=== PATIENT | female | born 1940 | race Caucasian/White ===

== ENCOUNTER 2016-05-03 11:34 | Emergency (ER) | payer MEDICARE ==
[2016-05-03] MEDS ORDERED: Acetaminophen TAB* 325 MG PO ONE (12:11)
--- NOTE | 2016-05-03 12:19 | ED ---
Upper Extremity Pain - HPI Summary HPI Summary: Patient presents with right shoulder pain that began when she pushed up to get out of her chair at 0200 this am. She uses a cane in her left hand and usually pushes up with her right from her chair. She did not hear or feel a pop in the arm, but immediately had pain. She has mild numbness in her right hand at baseline due to diabetes. She does not notice swelling, warmth or redness in the arm. She denies CP, SOB, or dizziness. 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 Mechanism Of Injury: Unknown Onset/Duration: Started Hours Ago Timing: Constant Severity Initially: Severe Severity Currently: Severe Pain Location: Shoulder Character: Sharp, Aching Aggravating Factor(s): Movement Alleviating Factor(s): Rest Associated Signs & Symptoms: Positive: Negative Related History: Dominant Hand Right - Allergies/Home Medications Allergies/Adverse Reactions: Allergies Allergy/AdvReac Type Severity Reaction Status Date / Time Lisinopril Allergy Intermediate Swelling Verified 05/03/16 12:15 Penicillin G Allergy Mild Swelling Verified 05/03/16 12:15 Bee Venom Allergy Swelling Verified 05/03/16 12:15 Home Medications: Home Medications Acetaminophen [Extra Strength Acetaminop] 2 tab PO Q4H PRN 05/03/16 [History Confirmed 05/03/16] Fluticasone HFA 110 mcg(NF) [Flovent HFA 110 mcg(NF)] 2 puff INH BID 05/03/16 [ History Confirmed 05/03/16] Hydrocodone-Acetaminophen [Hydrocodone/Acetaminophen 5-325 mg] 1 tab PO Q4H PRN 05/03/16 [History Confirmed 05/03/16] PMH/Surg Hx/FS Hx/Imm Hx Endocrine/Hematology History: Reports: Hx Diabetes Denies: Hx Anticoagulant Therapy Cardiovascular History: Reports: Hx Hypertension Respiratory History: Reports: Hx Asthma, Hx Chronic Obstructive Pulmonary Disease (COPD) GI History: Reports: Hx Gall Bladder Disease - Current History: Denies: Hx Renal Disease Musculoskeletal History: Reports: Hx Gout, Hx Orthopedic Injury - Left Hip Replacement, Other Musculoskeletal History - obesity Sensory History: Reports: Hx Contacts or Glasses - reading Opthamlomology History: Reports: Hx Contacts or Glasses - reading Psychiatric History: Denies: Hx Anxiety, Hx Depression - Cancer History Hx Chemotherapy: No Hx Radiation Therapy: No Hx Palliative Cancer Treatment: No - Surgical History Surgery Procedure, Year, and Place: Appendectomy, chilecystectomy, tubal ligation, Left Hip Replacement, r knee arthroscopy Hx Anesthesia Reactions: No Infectious Disease History: No Infectious Disease History: Denies: Traveled Outside the [place] in Last 30 Days - Family History Known Family History: Positive: Cardiac Disease, Hypertension - Social History Occupation: Unemployed Lives: With Family Alcohol Use: Rare Substance Use Type: Reports: None Smoking Status (MU): Former Smoker Review of Systems Negative: Chest Pain Negative: Shortness Of Breath Positive: Arthralgia, Myalgia, Decreased ROM. Negative: Edema Negative: Bruising All Other Systems Reviewed And Are Negative: Yes Physical Exam Triage Information Reviewed: Yes Vital Signs On Initial Exam: Initial Vitals Temp Pulse Resp BP Pulse Ox 98.4 F 85 20 109/46 98 05/03/16 11:53 05/03/16 11:53 05/03/16 11:53 05/03/16 11:53 05/03/16 11:53 Vital Signs Reviewed: Yes Appearance: Positive: Well-Appearing, Pain Distress, Obese Skin: Positive: Warm, Skin Color Reflects Adequate Perfusion, Dry, Soft Head/Face: Positive: Normal Head/Face Inspection Eyes: Positive: EOMI, [id number], Conjunctiva Clear ENT: Positive: Hearing grossly normal Respiratory/Lung Sounds: Positive: Clear to Auscultation, Breath Sounds Present Cardiovascular: Positive: RRR Musculoskeletal: Positive: Limited @ - AROM is painful in any direction; PROM FF to 10 with pain; ER/IR limited to neutral due to pain; FROM with pain in right elbow, Pain @ - TTP deltoid, AC joint and bicipital grove. Non-tender scapular spine, clavicle, and acromion. Neurological: Positive: Sensory/Motor Intact, Alert, Oriented to Person Place, Time, NV Bundle Intact Distally - altered at baseline and consistent as per patient Psychiatric: Positive: Affect/Mood Appropriate AVPU Assessment: Alert Diagnostics - Vital Signs Vital Signs Temp Pulse Resp BP Pulse Ox 05/03/16 11:53 98.4 F 85 20 109/46 98 - Laboratory Lab Statement: Any lab studies that have been ordered have been reviewed, and results considered in the medical decision making process. - Radiology No standard instances Xray Interpretation: No Acute Changes Radiology Interpretation Completed By: Radiologist Course/Dx - Diagnoses Differential Diagnosis/HQI/PQRI: Positive: Arthritis, Bursitis, Contusion, Fracture (Closed), Hematoma, Strain, Sprain Provider Diagnoses: Right shoulder strain Discharge - Discharge Plan Condition: Stable Disposition: HOME Prescriptions: HYDROcodone/ACETAMIN 5-325 MG* [[place] 5-325 TAB*] 1 tab PO Q6H PRN #12 tab MDD 4 PRN Reason: Pain Patient Education Materials: Shoulder Pain (ED) Referrals: Yessy North MD [Primary Care Provider] - Epi Mackay MD [Medical Doctor] - Additional Instructions: Please use the sling to support your shoulder as needed. You can add an extra [place] to your pain routine as needed and use ice or heat as well. Please call the orthopedic office today to make an appointment for evaluation. Return to the emergency department if your symptoms worsen.
--- NOTE | 2016-05-03 13:02 | RAD ---
Indication: RIGHT lateral arm pain. Comparison: None. Technique: Internal and external rotation AP and scapular Y views RIGHT shoulder Report: Normal acromioclavicular and glenohumeral joint alignment. Moderate acromioclavicular and moderately severe glenohumeral joint osteophytosis. Subchondral sclerosis at the glenohumeral joint. Negative for fracture. Negative for stigmata of calcific tendinopathy. Unremarkable soft tissue contours. 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
[2016-05-03] MEDS ORDERED: HYDROcodone/ACETAMIN 5-325 MG* 1 TAB PO ONE (13:22)
[2016-05-03 13:50] VITALS: BP 115/37
== END 2016-05-03 13:47 | disposition home or self-care (01) ==
LOC: ED 11:34
DX: M25.511 Pain in right shoulder (principal); S46.911A Strain of unspecified muscle, fascia and tendon at shoulder and upper arm level, right arm, initial encounter; X50.9XXA Other and unspecified overexertion or strenuous movements or postures, initial encounter; Y93.9 Activity, unspecified; Y92.9 Unspecified place or not applicable
CPT/HCPCS: 99282; A9270-GY

== ENCOUNTER 2021-08-19 12:21 | Inpatient (IN) ==
[2021-08-19] MEDS ORDERED: cefTRIAXone 1 gm/50 mL D5W 1 GM/50 ML BAG IV ONE (13:16)
[2021-08-19 13:50] LABS: ABS Lymphocytes 0.9 10^3/ul (1.0-4.8); ABS Monocytes 0.4 10^3/ul (0-0.8); ABS Neutrophils 9.2 10^3/ul (1.5-7.7); Eosinophil % 0.1 %; Hematocrit 34 % (35-47); Hemoglobin 11.1 g/dL (12.0-16.0); Lymphocyte % 8.6 %; Mean Corpuscular HGB Conc 32 g/dL (31-36); Mean Corpuscular Hemoglobin 28 pg (27-31); Mean Corpuscular Volume 89 fL (80-97); Mean Platelet Volume 8.9 fL (7.4-10.4); Platelet Count 166 10^3/uL (150-450); Red Blood Count 3.89 10^6 /uL (3.70-4.87); Red Cell Distribution Width 15 % (10-15); White Blood Count 10.5 10^3/uL (3.5-10.8)
[2021-08-19 14:21] LABS: Albumin/Globulin Ratio 1.3 (1-3); Calcium 9.7 mg/dL (8.6-10.3); Potassium 3.6 mmol/L (3.5-5.0); Total Bilirubin 0.5 mg/dL (0.2-1.0); eGFR CKD-EPI 64.6 (>60)
[2021-08-19] MEDS ORDERED: NS 0.9% 500 ml BAG 500 ML IV ONE (15:08)
[2021-08-19 15:46] LABS: High Sensitivity Troponin 1 Hr 35 pg/mL (<15)
[2021-08-19] MEDS ORDERED: Furosemide 20 mg/2 ml IV VIAL IV SLOW PU ONE (17:18)
[2021-08-19] MEDS ORDERED: Albuterol HFA INHALER 8 gm MDI INH PRN (17:19)
[2021-08-19] MEDS ORDERED: Dextrose 50% Syringe 50 ml 25 GM/50 ML SYRINGE IV PUSH PRN (17:20)
[2021-08-19] MEDS: Enoxaparin 40 MG/0.4 ML SYR SUBCUT SCH (17:57)
[2021-08-19 18:09] LABS: C Reactive Protein 46.22 mg/L (<8.01)
[2021-08-20 06:10] LABS: ABS Eosinophils 0.1 10^3/ul (0-0.6); ABS Lymphocytes 1.7 10^3/ul (1.0-4.8); ABS Monocytes 0.5 10^3/ul (0-0.8); Eosinophil % 1.5 %; Hematocrit 31 % (35-47); Hemoglobin 10.1 g/dL (12.0-16.0); Lymphocyte % 20.3 %; Mean Corpuscular HGB Conc 33 g/dL (31-36); Mean Corpuscular Hemoglobin 29 pg (27-31); Mean Corpuscular Volume 88 fL (80-97); Mean Platelet Volume 9.1 fL (7.4-10.4); Platelet Count 149 10^3/uL (150-450); Red Cell Distribution Width 15 % (10-15); White Blood Count 8.3 10^3/uL (3.5-10.8)
[2021-08-20 06:27] LABS: Calcium 8.8 mg/dL (8.6-10.3); Potassium 3.1 mmol/L (3.5-5.0); eGFR CKD-EPI 62.1 (>60)
[2021-08-20] MEDS ORDERED: Potassium Chlor 10 meq TAB PO ONE (07:04)
[2021-08-20] MEDS ORDERED: Furosemide 20 mg/2 ml IV VIAL IV SLOW PU ONE (08:20)
[2021-08-20] MEDS: HYDROcodone/ACETAMIN 5/325 mg TAB PO PRN ×2 (11:02→23:00)
[2021-08-20] MEDS: Enoxaparin 40 MG/0.4 ML SYR SUBCUT SCH (17:50)
[2021-08-20] MEDS: Mometasone 220 MCG MDI INH SCH (22:05)
[2021-08-21 07:55] LABS: Magnesium 1.3 mg/dL (1.9-2.7); Potassium 3.8 mmol/L (3.5-5.0); eGFR CKD-EPI 59.8 (>60)
[2021-08-21] MEDS ORDERED: Potassium Chlor 20 meq TAB.ER PO ONE (09:12)
[2021-08-21 09:54] LABS: Calcium 8.2 mg/dL (8.6-10.3)
[2021-08-21 10:13] LABS: ABS Eosinophils 0.2 10^3/ul (0-0.6); ABS Lymphocytes 1.4 10^3/ul (1.0-4.8); ABS Monocytes 0.3 10^3/ul (0-0.8); ABS Neutrophils 4.9 10^3/ul (1.5-7.7); Eosinophil % 2.4 %; Hematocrit 29 % (35-47); Hemoglobin 9.5 g/dL (12.0-16.0); Lymphocyte % 20.3 %; Mean Corpuscular HGB Conc 32 g/dL (31-36); Mean Corpuscular Hemoglobin 29 pg (27-31); Mean Corpuscular Volume 90 fL (80-97); Mean Platelet Volume 9.3 fL (7.4-10.4); Platelet Count 136 10^3/uL (150-450); Red Blood Count 3.28 10^6 /uL (3.70-4.87); Red Cell Distribution Width 15 % (10-15); White Blood Count 6.8 10^3/uL (3.5-10.8)
[2021-08-21] MEDS: Magnesium Sulfate 2 gm BAG 2 GM/50 ML BAG IVPB SCH ×2 (10:58→15:31)
[2021-08-21 12:40] LABS: Ferritin 240.2 ng/mL (11-307)
[2021-08-21 13:20] LABS: Urine Appearance Clear; Urine Bilirubin Negative (Negative); Urine Blood Negative (Negative); Urine Color Yellow; Urine Glucose Negative (Negative); Urine Ketones Negative (Negative); Urine Nitrite Negative (Negative); Urine Protein Negative (Negative); Urine Specific Gravity 1.014 (1.002-1.030); Urine Urobilinogen Negative (Negative)
[2021-08-21 13:24] LABS: Urine Bacteria 1+ (Absent); Urine Red Blood Cell Trace(0-2/hpf) (Absent); Urine Squamous Epithelial Cell Present (Absent); Urine White Blood Cell Trace(0-5/hpf) (Absent)
[2021-08-21] MEDS: Enoxaparin 40 MG/0.4 ML SYR SUBCUT SCH (17:51)
[2021-08-21] MEDS: Mometasone 220 MCG MDI INH SCH (19:15)
[2021-08-21] MEDS: HYDROcodone/ACETAMIN 5/325 mg TAB PO PRN (22:17)
[2021-08-22 05:25] LABS: ABS Eosinophils 0.2 10^3/ul (0-0.6); ABS Lymphocytes 1.3 10^3/ul (1.0-4.8); ABS Monocytes 0.3 10^3/ul (0-0.8); Hematocrit 30 % (35-47); Hemoglobin 9.6 g/dL (12.0-16.0); Lymphocyte % 22.8 %; Mean Corpuscular HGB Conc 32 g/dL (31-36); Mean Corpuscular Hemoglobin 28 pg (27-31); Mean Corpuscular Volume 89 fL (80-97); Mean Platelet Volume 8.9 fL (7.4-10.4); Platelet Count 134 10^3/uL (150-450); Red Blood Count 3.39 10^6 /uL (3.70-4.87); Red Cell Distribution Width 15 % (10-15); White Blood Count 5.9 10^3/uL (3.5-10.8)
[2021-08-22 05:42] LABS: Calcium 8.3 mg/dL (8.6-10.3); Magnesium 2.2 mg/dL (1.9-2.7); Potassium 3.9 mmol/L (3.5-5.0); eGFR CKD-EPI 59.8 (>60)
[2021-08-22] MEDS ORDERED: Perflutren Lipid Microsphere 3 ML VIAL ONE (09:11)
[2021-08-22] MEDS: Enoxaparin 40 MG/0.4 ML SYR SUBCUT SCH (19:01)
[2021-08-22] MEDS: Mometasone 220 MCG MDI INH SCH (20:46)
[2021-08-22] MEDS ORDERED: Senna TAB 8.6 mg TAB PO PRN (22:06)
[2021-08-22] MEDS ORDERED: Magnesium Hydroxide LIQ 30 ML UDC PO PRN (22:06)
[2021-08-22] MEDS: HYDROcodone/ACETAMIN 5/325 mg TAB PO PRN (23:22)
[2021-08-23] MEDS ORDERED: COVID-19 VACCINE, MRNA(MODERNA)/PF 100 MCG/0.5 ML IM ONE (10:41)
[2021-08-23] MEDS: Enoxaparin 40 MG/0.4 ML SYR SUBCUT SCH (18:28)
[2021-08-23] MEDS: Mometasone 220 MCG MDI INH SCH (20:39)
[2021-08-24] MEDS ORDERED: COVID-19 VACCINE, MRNA(PFIZER)/PF 30 MCG/0.3 ML IM ONE (13:00)
[2021-08-24] MEDS ORDERED: COVID-19 VACCINE, TRIS(PFIZER)/PF 30 MCG/0.3 ML IM ONE (13:00)
[2021-08-24] MEDS: SPIRIVA Respimat (tiotropium) 2.5 mcg/inh Inhaler INH SCH (16:18)
[2021-08-24] MEDS: Enoxaparin 40 MG/0.4 ML SYR SUBCUT SCH (19:46)
[2021-08-24] MEDS: Mometasone 220 MCG MDI INH SCH (20:53)
[2021-08-25] MEDS: Ondansetron ODT 4 mg TAB 4 MG TAB SL PRN ×2 (03:28→09:29)
[2021-08-25] MEDS: SPIRIVA Respimat (tiotropium) 2.5 mcg/inh Inhaler INH SCH (08:52)
[2021-08-25] MEDS: Polyethylene Glycol 3350 17 GM PACKET PO SCH (09:30)
[2021-08-25] MEDS: Enoxaparin 40 MG/0.4 ML SYR SUBCUT SCH (18:07)
[2021-08-25] MEDS: Mometasone 220 MCG MDI INH SCH (20:15)
[2021-08-25] MEDS: Senna TAB 8.6 mg TAB PO SCH (22:17)
[2021-08-26 06:33] LABS: Calcium 8.5 mg/dL (8.6-10.3); Magnesium 1.7 mg/dL (1.9-2.7); eGFR CKD-EPI 62.9 (>60)
[2021-08-26 06:37] LABS: Potassium 5.3 mmol/L (3.5-5.0)
[2021-08-26] MEDS: SPIRIVA Respimat (tiotropium) 2.5 mcg/inh Inhaler INH SCH (08:20)
[2021-08-26 10:19] LABS: ABS Eosinophils 0.1 10^3/ul (0-0.6); ABS Lymphocytes 1.6 10^3/ul (1.0-4.8); ABS Monocytes 0.3 10^3/ul (0-0.8); ABS Neutrophils 1.6 10^3/ul (1.5-7.7); Eosinophil % 3.1 %; Hematocrit 30 % (35-47); Hemoglobin 9.9 g/dL (12.0-16.0); Mean Corpuscular HGB Conc 33 g/dL (31-36); Mean Corpuscular Hemoglobin 29 pg (27-31); Mean Corpuscular Volume 89 fL (80-97); Platelet Count 161 10^3/uL (150-450); Red Blood Count 3.38 10^6 /uL (3.70-4.87); Red Cell Distribution Width 15 % (10-15); White Blood Count 3.6 10^3/uL (3.5-10.8)
[2021-08-26 10:19] LABS: Venous Bicarbonate HCO3 34.4 mmol/L (24-28)
[2021-08-26] MEDS: Polyethylene Glycol 3350 17 GM PACKET PO SCH (10:28)
[2021-08-26 10:54] LABS: Calcium 8.2 mg/dL (8.6-10.3); Potassium 4.2 mmol/L (3.5-5.0); eGFR CKD-EPI 75.6 (>60)
[2021-08-26 11:04] LABS: Rapid COVID-19 Molecular Detected (Undetected)
[2021-08-26] MEDS ORDERED: Remdesivir 100 mg Vial 200 MG in NS 0.9% 250 ml 210 ML IV ONE (13:38)
[2021-08-26] MEDS: Dexamethasone IV 4 MG/ML VIAL 1 ml VIAL IV SLOW PU SCH (14:08)
[2021-08-26 14:40] LABS: Magnesium 1.6 mg/dL (1.9-2.7)
[2021-08-26] MEDS ORDERED: Magnesium Sulf 4 GM/100 ML IV 4,000 MG/100 ML BAG IVPB ONE (16:42)
[2021-08-26] MEDS: Enoxaparin 40 MG/0.4 ML SYR SUBCUT SCH (17:29)
[2021-08-26] MEDS: Mometasone 220 MCG MDI INH SCH (19:31)
[2021-08-26] MEDS: Senna TAB 8.6 mg TAB PO SCH (21:52)
[2021-08-27] MEDS: Al Hydrox/Mg Hydrox/Simet LIQ 30 ML UDC PO PRN ×2 (05:26→21:28)
[2021-08-27 05:39] LABS: INR 1.03 (0.86-1.15)
[2021-08-27 06:20] LABS: Albumin 3.2 g/dL (3.2-5.2); Albumin/Globulin Ratio 1.4 (1-3); Calcium 8.3 mg/dL (8.6-10.3); Globulin 2.3 g/dL (2-4); Potassium 4.1 mmol/L (3.5-5.0); Total Bilirubin 0.3 mg/dL (0.2-1.0); Total Protein 5.5 g/dL (6.4-8.9); eGFR CKD-EPI 87.4 (>60)
[2021-08-27] MEDS: SPIRIVA Respimat (tiotropium) 2.5 mcg/inh Inhaler INH SCH (08:43)
[2021-08-27] MEDS: Polyethylene Glycol 3350 17 GM PACKET PO SCH (08:54)
[2021-08-27] MEDS: Dexamethasone IV 4 MG/ML VIAL 1 ml VIAL IV SLOW PU SCH (08:55)
[2021-08-27] MEDS ORDERED: Simethicone SUSP ORALSYR 66.66 MG/ML PO ONE (12:42)
[2021-08-27] MEDS: Pantoprazole VIAL 40 MG VIAL IV SCH (12:55)
[2021-08-27] MEDS: Simethicone SUSP ORALSYR 66.66 MG/ML PO PRN ×2 (16:54→16:55)
[2021-08-27] MEDS: Enoxaparin 40 MG/0.4 ML SYR SUBCUT SCH (17:07)
[2021-08-27] MEDS: Mometasone 220 MCG MDI INH SCH (19:56)
[2021-08-27] MEDS: Senna TAB 8.6 mg TAB PO SCH (21:14)
[2021-08-27] MEDS: Remdesivir 100 mg Vial 100 MG in NS 0.9% 250 ml 230 ML IV SCH (21:27)
[2021-08-28 05:31] LABS: INR 1.08 (0.86-1.15)
[2021-08-28 06:03] LABS: Albumin 3.2 g/dL (3.2-5.2); Albumin/Globulin Ratio 1.1 (1-3); Calcium 8.7 mg/dL (8.6-10.3); Globulin 2.8 g/dL (2-4); Potassium 4.2 mmol/L (3.5-5.0); Total Bilirubin 0.3 mg/dL (0.2-1.0); eGFR CKD-EPI 81.7 (>60)
[2021-08-28] MEDS: Mometasone 220 MCG MDI INH SCH (07:18)
[2021-08-28] MEDS: SPIRIVA Respimat (tiotropium) 2.5 mcg/inh Inhaler INH SCH (07:18)
[2021-08-28] MEDS: Pantoprazole VIAL 40 MG VIAL IV SCH (08:48)
[2021-08-28] MEDS: Dexamethasone IV 4 MG/ML VIAL 1 ml VIAL IV SLOW PU SCH (08:52)
[2021-08-28] MEDS: Polyethylene Glycol 3350 17 GM PACKET PO SCH (09:10)
[2021-08-28] MEDS: Nystatin TOP POWDER 15 GM BTL TOPICAL SCH ×3 (12:16→21:56)
[2021-08-28 15:14] LABS: Urine Appearance Cloudy; Urine Bilirubin Negative (Negative); Urine Blood 1+ (Negative); Urine Color Yellow; Urine Glucose Negative (Negative); Urine Ketones Trace (Negative); Urine Nitrite Negative (Negative); Urine Protein Negative (Negative); Urine Specific Gravity 1.008 (1.002-1.030); Urine Urobilinogen Negative (Negative)
[2021-08-28 15:21] LABS: Urine Bacteria 1+ (Absent); Urine Red Blood Cell Trace(0-2/hpf) (Absent); Urine Squamous Epithelial Cell Present (Absent); Urine White Blood Cell Trace(0-5/hpf) (Absent)
[2021-08-28] MEDS: Enoxaparin 40 MG/0.4 ML SYR SUBCUT SCH (17:04)
[2021-08-28] MEDS: Remdesivir 100 mg Vial 100 MG in NS 0.9% 250 ml 230 ML IV SCH (21:55)
[2021-08-28] MEDS: Senna TAB 8.6 mg TAB PO SCH (21:56)
[2021-08-29 07:00] LABS: INR 1.12 (0.86-1.15)
[2021-08-29 07:12] LABS: Albumin 3.2 g/dL (3.2-5.2); Albumin/Globulin Ratio 1.1 (1-3); Calcium 8.7 mg/dL (8.6-10.3); Globulin 2.8 g/dL (2-4); Potassium 3.7 mmol/L (3.5-5.0); Total Bilirubin 0.4 mg/dL (0.2-1.0); eGFR CKD-EPI 80.4 (>60)
[2021-08-29] MEDS: SPIRIVA Respimat (tiotropium) 2.5 mcg/inh Inhaler INH SCH (07:29)
[2021-08-29] MEDS: Dexamethasone IV 4 MG/ML VIAL 1 ml VIAL IV SLOW PU SCH (09:41)
[2021-08-29] MEDS: Polyethylene Glycol 3350 17 GM PACKET PO SCH (09:41)
[2021-08-29] MEDS: Pantoprazole VIAL 40 MG VIAL IV SCH (09:41)
[2021-08-29] MEDS: Nystatin TOP POWDER 15 GM BTL TOPICAL SCH ×3 (09:43→20:34)
[2021-08-29] MEDS: Enoxaparin 40 MG/0.4 ML SYR SUBCUT SCH (18:27)
[2021-08-29] MEDS: Remdesivir 100 mg Vial 100 MG in NS 0.9% 250 ml 230 ML IV SCH (20:36)
[2021-08-29] MEDS: Senna TAB 8.6 mg TAB PO SCH (20:36)
[2021-08-29] MEDS: Mometasone 220 MCG MDI INH SCH (21:04)
[2021-08-30] MEDS ORDERED: Ondansetron 4 mg VIAL 2 MG/ML 2 ml VIAL ONE (00:35)
[2021-08-30] MEDS ORDERED: Ondansetron 4 mg VIAL 2 MG/ML 2 ml VIAL IV PRN (00:38)
[2021-08-30 06:50] LABS: ABS Lymphocytes 1.7 10^3/ul (1.0-4.8); ABS Monocytes 0.4 10^3/ul (0-0.8); ABS Neutrophils 4.3 10^3/ul (1.5-7.7); Eosinophil % 0.1 %; Hematocrit 32 % (35-47); Hemoglobin 10.7 g/dL (12.0-16.0); Lymphocyte % 27.1 %; Mean Corpuscular HGB Conc 33 g/dL (31-36); Mean Corpuscular Hemoglobin 29 pg (27-31); Mean Corpuscular Volume 88 fL (80-97); Mean Platelet Volume 8.2 fL (7.4-10.4); Platelet Count 185 10^3/uL (150-450); Red Blood Count 3.69 10^6 /uL (3.70-4.87); Red Cell Distribution Width 15 % (10-15); White Blood Count 6.5 10^3/uL (3.5-10.8)
[2021-08-30 06:56] LABS: INR 1.14 (0.86-1.15)
[2021-08-30 07:10] LABS: Albumin 3.3 g/dL (3.2-5.2); Albumin/Globulin Ratio 1.2 (1-3); Calcium 8.6 mg/dL (8.6-10.3); Globulin 2.7 g/dL (2-4); Potassium 3.8 mmol/L (3.5-5.0); Total Bilirubin 0.4 mg/dL (0.2-1.0); eGFR CKD-EPI 68.3 (>60)
[2021-08-30] MEDS: SPIRIVA Respimat (tiotropium) 2.5 mcg/inh Inhaler INH SCH (07:40)
[2021-08-30] MEDS: Polyethylene Glycol 3350 17 GM PACKET PO SCH (09:18)
[2021-08-30] MEDS: Dexamethasone IV 4 MG/ML VIAL 1 ml VIAL IV SLOW PU SCH (09:20)
[2021-08-30] MEDS: Nystatin TOP POWDER 15 GM BTL TOPICAL SCH ×3 (09:22→20:49)
[2021-08-30 11:45] LABS: C Reactive Protein 14.42 mg/L (<8.01)
[2021-08-30] MEDS: Pantoprazole VIAL 40 MG VIAL IV SCH (13:33)
[2021-08-30] MEDS ORDERED: Midazolam 10 mg/10 ml VIAL 1 mg/ml 10 ml VIAL (10 mg) ONE (15:56)
[2021-08-30] MEDS ORDERED: fentaNYL 100 mcg/2 ml 50 MCG/ML VIAL ONE (15:56)
[2021-08-30] MEDS: Enoxaparin 40 MG/0.4 ML SYR SUBCUT SCH (18:39)
[2021-08-30] MEDS: Remdesivir 100 mg Vial 100 MG in NS 0.9% 250 ml 230 ML IV SCH (20:48)
[2021-08-30] MEDS: Senna TAB 8.6 mg TAB PO SCH (20:49)
[2021-08-30] MEDS: Mometasone 220 MCG MDI INH SCH (21:07)
[2021-08-31 06:38] LABS: ABS Lymphocytes 1.4 10^3/ul (1.0-4.8); ABS Monocytes 0.3 10^3/ul (0-0.8); Eosinophil % 0.1 %; Hematocrit 31 % (35-47); Hemoglobin 10.3 g/dL (12.0-16.0); Lymphocyte % 24.2 %; Mean Corpuscular HGB Conc 33 g/dL (31-36); Mean Corpuscular Hemoglobin 29 pg (27-31); Mean Corpuscular Volume 89 fL (80-97); Mean Platelet Volume 8.8 fL (7.4-10.4); Platelet Count 158 10^3/uL (150-450); Red Blood Count 3.54 10^6 /uL (3.70-4.87); Red Cell Distribution Width 15 % (10-15); White Blood Count 5.7 10^3/uL (3.5-10.8)
[2021-08-31 06:52] LABS: INR 1.13 (0.86-1.15)
[2021-08-31 06:56] LABS: Albumin 3.1 g/dL (3.2-5.2); Albumin/Globulin Ratio 1.3 (1-3); Calcium 8.4 mg/dL (8.6-10.3); Globulin 2.4 g/dL (2-4); Potassium 3.7 mmol/L (3.5-5.0); Total Bilirubin 0.4 mg/dL (0.2-1.0); Total Protein 5.5 g/dL (6.4-8.9); eGFR CKD-EPI 72.3 (>60)
[2021-08-31] MEDS: SPIRIVA Respimat (tiotropium) 2.5 mcg/inh Inhaler INH SCH (08:56)
[2021-08-31] MEDS: Polyethylene Glycol 3350 17 GM PACKET PO SCH (10:17)
[2021-08-31] MEDS: Nystatin TOP POWDER 15 GM BTL TOPICAL SCH ×3 (10:22→21:06)
[2021-08-31] MEDS: Pantoprazole VIAL 40 MG VIAL IV SCH (10:25)
[2021-08-31] MEDS: Benzocaine/Menthol LOZ PO PRN (14:59)
[2021-08-31] MEDS: Enoxaparin 40 MG/0.4 ML SYR SUBCUT SCH (18:16)
[2021-08-31] MEDS: Mometasone 220 MCG MDI INH SCH (19:27)
[2021-08-31] MEDS: Senna TAB 8.6 mg TAB PO SCH (21:10)
[2021-08-31] MEDS ORDERED: Dextrose 50% Syringe 50 ml 25 GM/50 ML SYRINGE IV PUSH PRN (23:09)
[2021-09-01 06:52] LABS: Hematocrit 33 % (35-47); Hemoglobin 10.9 g/dL (12.0-16.0); Mean Corpuscular HGB Conc 33 g/dL (31-36); Mean Corpuscular Hemoglobin 29 pg (27-31); Mean Corpuscular Volume 89 fL (80-97); Platelet Count 165 10^3/uL (150-450); Red Blood Count 3.77 10^6 /uL (3.70-4.87); Red Cell Distribution Width 15 % (10-15); White Blood Count 5.4 10^3/uL (3.5-10.8)
[2021-09-01 06:55] LABS: Albumin 3.2 g/dL (3.2-5.2); Albumin/Globulin Ratio 1.4 (1-3); C Reactive Protein 17.26 mg/L (<8.01); Calcium 8.3 mg/dL (8.6-10.3); Globulin 2.3 g/dL (2-4); Potassium 3.4 mmol/L (3.5-5.0); Total Bilirubin 0.5 mg/dL (0.2-1.0); Total Protein 5.5 g/dL (6.4-8.9); eGFR CKD-EPI 72.3 (>60)
[2021-09-01] MEDS: SPIRIVA Respimat (tiotropium) 2.5 mcg/inh Inhaler INH SCH (08:19)
[2021-09-01] MEDS: Pantoprazole VIAL 40 MG VIAL IV SCH (08:45)
[2021-09-01] MEDS: Polyethylene Glycol 3350 17 GM PACKET PO SCH (08:45)
[2021-09-01] MEDS: Nystatin TOP POWDER 15 GM BTL TOPICAL SCH ×3 (08:48→20:37)
[2021-09-01 08:50] LABS: Magnesium 1.6 mg/dL (1.9-2.7)
[2021-09-01] MEDS: Benzocaine/Menthol LOZ PO PRN (08:51)
[2021-09-01] MEDS ORDERED: Magnesium Sulfate 2 gm BAG 2 GM/50 ML BAG IVPB ONE (09:22)
[2021-09-01] MEDS ORDERED: Acetaminophen IV 1 GM/100ML 100 ML IV PRN (11:29)
[2021-09-01] MEDS: Simethicone SUSP ORALSYR 66.66 MG/ML PO PRN (12:53)
[2021-09-01] MEDS: KCL 20 MEQ/100 ML IVPREMIX 20 MEQ/100 ML BAG IV SCH ×2 (14:23→17:44)
[2021-09-01] MEDS ORDERED: Potassium Chlor 20 meq TAB.ER PO ONE (16:44)
[2021-09-01] MEDS: Senna TAB 8.6 mg TAB PO SCH (20:26)
[2021-09-01] MEDS: Enoxaparin 40 MG/0.4 ML SYR SUBCUT SCH (20:27)
[2021-09-01] MEDS: Mometasone 220 MCG MDI INH SCH (20:38)
[2021-09-02 02:27] LABS: ABS Eosinophils 0.2 10^3/ul (0-0.6); ABS Lymphocytes 1.8 10^3/ul (1.0-4.8); ABS Monocytes 0.4 10^3/ul (0-0.8); ABS Neutrophils 3.9 10^3/ul (1.5-7.7); Eosinophil % 3.2 %; Hematocrit 33 % (35-47); Hemoglobin 10.9 g/dL (12.0-16.0); Lymphocyte % 28.2 %; Mean Corpuscular HGB Conc 33 g/dL (31-36); Mean Corpuscular Hemoglobin 29 pg (27-31); Mean Corpuscular Volume 88 fL (80-97); Mean Platelet Volume 8.8 fL (7.4-10.4); Platelet Count 179 10^3/uL (150-450); Red Blood Count 3.78 10^6 /uL (3.70-4.87); Red Cell Distribution Width 15 % (10-15); White Blood Count 6.3 10^3/uL (3.5-10.8)
[2021-09-02 02:51] LABS: Calcium 8.5 mg/dL (8.6-10.3); Potassium 3.6 mmol/L (3.5-5.0); eGFR CKD-EPI 68.3 (>60)
[2021-09-02] MEDS: SPIRIVA Respimat (tiotropium) 2.5 mcg/inh Inhaler INH SCH (07:19)
[2021-09-02] MEDS: Nystatin TOP POWDER 15 GM BTL TOPICAL SCH ×3 (09:46→20:43)
[2021-09-02] MEDS: Pantoprazole VIAL 40 MG VIAL IV SCH (09:46)
[2021-09-02] MEDS: Polyethylene Glycol 3350 17 GM PACKET PO SCH ×2 (09:46→09:49)
[2021-09-02] MEDS: Enoxaparin 40 MG/0.4 ML SYR SUBCUT SCH (17:10)
[2021-09-02] MEDS: Mometasone 220 MCG MDI INH SCH (20:09)
[2021-09-02] MEDS: Senna TAB 8.6 mg TAB PO SCH (22:14)
[2021-09-03 06:08] LABS: ABS Eosinophils 0.2 10^3/ul (0-0.6); ABS Lymphocytes 1.3 10^3/ul (1.0-4.8); ABS Monocytes 0.3 10^3/ul (0-0.8); ABS Neutrophils 3.8 10^3/ul (1.5-7.7); Eosinophil % 4.4 %; Hematocrit 35 % (35-47); Hemoglobin 11.5 g/dL (12.0-16.0); Lymphocyte % 23.9 %; Mean Corpuscular HGB Conc 33 g/dL (31-36); Mean Corpuscular Hemoglobin 29 pg (27-31); Mean Corpuscular Volume 88 fL (80-97); Mean Platelet Volume 9.5 fL (7.4-10.4); Nucleated Red Blood Cells % 0.1; Platelet Count 169 10^3/uL (150-450); Red Blood Count 3.96 10^6 /uL (3.70-4.87); Red Cell Distribution Width 15 % (10-15); White Blood Count 5.6 10^3/uL (3.5-10.8)
[2021-09-03 06:35] LABS: Calcium 8.9 mg/dL (8.6-10.3); Potassium 3.9 mmol/L (3.5-5.0); eGFR CKD-EPI 81.7 (>60)
[2021-09-03] MEDS: Pantoprazole VIAL 40 MG VIAL IV SCH (09:39)
[2021-09-03] MEDS: Polyethylene Glycol 3350 17 GM PACKET PO SCH (09:39)
[2021-09-03] MEDS: Nystatin TOP POWDER 15 GM BTL TOPICAL SCH ×3 (09:42→22:52)
[2021-09-03] MEDS: SPIRIVA Respimat (tiotropium) 2.5 mcg/inh Inhaler INH SCH (09:55)
[2021-09-03] MEDS: Benzocaine/Menthol LOZ PO PRN (11:14)
[2021-09-03] MEDS: Simethicone SUSP ORALSYR 66.66 MG/ML PO PRN (15:16)
[2021-09-03] MEDS: Enoxaparin 40 MG/0.4 ML SYR SUBCUT SCH (17:23)
[2021-09-03] MEDS: Mometasone 220 MCG MDI INH SCH (20:29)
[2021-09-03] MEDS: Senna TAB 8.6 mg TAB PO SCH (22:52)
[2021-09-04] MEDS: SPIRIVA Respimat (tiotropium) 2.5 mcg/inh Inhaler INH SCH (08:05)
[2021-09-04] MEDS: Polyethylene Glycol 3350 17 GM PACKET PO SCH (08:51)
[2021-09-04] MEDS: Pantoprazole VIAL 40 MG VIAL IV SCH (08:51)
[2021-09-04] MEDS: Nystatin TOP POWDER 15 GM BTL TOPICAL SCH ×3 (08:56→22:06)
[2021-09-04] MEDS: Enoxaparin 40 MG/0.4 ML SYR SUBCUT SCH (16:25)
[2021-09-04] MEDS: Mometasone 220 MCG MDI INH SCH (19:35)
[2021-09-04] MEDS: Senna TAB 8.6 mg TAB PO SCH (22:04)
[2021-09-05] MEDS: SPIRIVA Respimat (tiotropium) 2.5 mcg/inh Inhaler INH SCH (07:20)
[2021-09-05] MEDS: Nystatin TOP POWDER 15 GM BTL TOPICAL SCH ×3 (09:42→20:55)
[2021-09-05] MEDS: Polyethylene Glycol 3350 17 GM PACKET PO SCH (09:42)
[2021-09-05] MEDS: Pantoprazole VIAL 40 MG VIAL IV SCH (10:52)
[2021-09-05] MEDS: Enoxaparin 40 MG/0.4 ML SYR SUBCUT SCH (18:09)
[2021-09-05] MEDS: Mometasone 220 MCG MDI INH SCH (20:49)
[2021-09-05] MEDS: Senna TAB 8.6 mg TAB PO SCH (20:56)
[2021-09-06] MEDS: SPIRIVA Respimat (tiotropium) 2.5 mcg/inh Inhaler INH SCH (08:43)
[2021-09-06] MEDS: Pantoprazole VIAL 40 MG VIAL IV SCH (09:19)
[2021-09-06] MEDS: Nystatin TOP POWDER 15 GM BTL TOPICAL SCH ×3 (09:20→23:08)
[2021-09-06] MEDS ORDERED: Simethicone SUSP ORALSYR 66.66 MG/ML PO ONE (10:36)
[2021-09-06 10:56] LABS: ABS Basophils 0.1 10^3/ul (0-0.2); ABS Eosinophils 0.2 10^3/ul (0-0.6); ABS Lymphocytes 1.4 10^3/ul (1.0-4.8); ABS Monocytes 0.4 10^3/ul (0-0.8); ABS Neutrophils 4.1 10^3/ul (1.5-7.7); Eosinophil % 2.9 %; Hematocrit 34 % (35-47); Hemoglobin 11.2 g/dL (12.0-16.0); Lymphocyte % 22.6 %; Mean Corpuscular HGB Conc 33 g/dL (31-36); Mean Corpuscular Hemoglobin 29 pg (27-31); Mean Corpuscular Volume 89 fL (80-97); Mean Platelet Volume 9.6 fL (7.4-10.4); Platelet Count 175 10^3/uL (150-450); Red Blood Count 3.85 10^6 /uL (3.70-4.87); Red Cell Distribution Width 15 % (10-15); White Blood Count 6.1 10^3/uL (3.5-10.8)
[2021-09-06 11:29] LABS: Rapid COVID-19 Molecular Undetected (Undetected)
[2021-09-06 11:36] LABS: Calcium 8.3 mg/dL (8.6-10.3); Potassium 2.9 mmol/L (3.5-5.0); eGFR CKD-EPI 64.6 (>60)
[2021-09-06 12:00] LABS: Magnesium 1.3 mg/dL (1.9-2.7)
[2021-09-06] MEDS ORDERED: Magnesium Sulf 4 GM/100 ML IV 4,000 MG/100 ML BAG IVPB ONE (12:05)
[2021-09-06] MEDS ORDERED: Potassium Chloride LIQUID 20 MEQ/15 ML LIQUID PO ONE (13:00)
[2021-09-06] MEDS: Al Hydrox/Mg Hydrox/Simet LIQ 30 ML UDC PO PRN (15:44)
[2021-09-06] MEDS ORDERED: Potassium Chlor 20 meq TAB.ER PO ONE (17:00)
[2021-09-06] MEDS: Enoxaparin 40 MG/0.4 ML SYR SUBCUT SCH (18:22)
[2021-09-06] MEDS: Mometasone 220 MCG MDI INH SCH (19:57)
[2021-09-06] MEDS: Senna TAB 8.6 mg TAB PO SCH (23:05)
[2021-09-07 08:27] LABS: ABS Eosinophils 0.2 10^3/ul (0-0.6); ABS Lymphocytes 1.7 10^3/ul (1.0-4.8); ABS Monocytes 0.4 10^3/ul (0-0.8); ABS Neutrophils 4.4 10^3/ul (1.5-7.7); Eosinophil % 2.9 %; Hematocrit 33 % (35-47); Hemoglobin 10.7 g/dL (12.0-16.0); Lymphocyte % 25.1 %; Mean Corpuscular HGB Conc 33 g/dL (31-36); Mean Corpuscular Hemoglobin 29 pg (27-31); Mean Corpuscular Volume 88 fL (80-97); Mean Platelet Volume 9.3 fL (7.4-10.4); Nucleated Red Blood Cells % 0.1; Platelet Count 182 10^3/uL (150-450); Red Blood Count 3.75 10^6 /uL (3.70-4.87); Red Cell Distribution Width 15 % (10-15); White Blood Count 6.6 10^3/uL (3.5-10.8)
[2021-09-07] MEDS: Pantoprazole VIAL 40 MG VIAL IV SCH (08:36)
[2021-09-07] MEDS: Nystatin TOP POWDER 15 GM BTL TOPICAL SCH ×3 (08:44→21:34)
[2021-09-07 09:02] LABS: Calcium 8.8 mg/dL (8.6-10.3); Magnesium 1.9 mg/dL (1.9-2.7); Potassium 3.8 mmol/L (3.5-5.0); eGFR CKD-EPI 74.4 (>60)
[2021-09-07] MEDS: SPIRIVA Respimat (tiotropium) 2.5 mcg/inh Inhaler INH SCH (09:41)
[2021-09-07] MEDS: Enoxaparin 40 MG/0.4 ML SYR SUBCUT SCH (18:02)
[2021-09-07] MEDS: Mometasone 220 MCG MDI INH SCH (19:53)
[2021-09-07] MEDS: Senna TAB 8.6 mg TAB PO SCH (20:49)
[2021-09-08 07:40] VITALS: BP 131/63
[2021-09-08] MEDS: SPIRIVA Respimat (tiotropium) 2.5 mcg/inh Inhaler INH SCH (08:00)
[2021-09-08] MEDS: Pantoprazole VIAL 40 MG VIAL IV SCH (08:23)
== END 2021-09-08 10:25 | DRG 291 ==
LOC: EDHOLD 12:21 → ED 12:21 → EDHOLD 19:56 → MEDTELE 21:13 → SUATTDRO 08-21 15:40 → MEDTELE 08-26 11:24
PROVIDERS: ADMIT Hospitalist; ATTEND Internal Medicine